=== PATIENT | male | born 1965 | race African-American/Black ===

== ENCOUNTER 2016-11-20 14:14 | Inpatient (IN) | payer MEDICAID ==
[~2016-11-20] VITALS: Ht 182.9 cm; Wt 88.0 kg
[2016-11-20] MEDS ORDERED: KETOROLAC 30MG/ML VIAL IV ONE (14:45)
[2016-11-20] MEDS ORDERED: SODIUM CHLORIDE 0.9% 1,000 ML IV ONE (14:45)
[2016-11-20] MEDS ORDERED: CLONIDINE 0.2MG TABLET PO ONE (14:45)
[2016-11-20] MEDS ORDERED: METHOCARBAMOL 500MG TABLET PO ONE (14:45)
[2016-11-20] MEDS ORDERED: LORAZEPAM 2MG/ML CPJ IV ONE (14:45)
[2016-11-20 15:34] LABS: BASOPHILS % 0.9 % (0.0-2.0); EOSINOPHILS % 0.2 % (0.0-5.0); HEMATOCRIT. 45.4 % (42.0-52.0); HEMOGLOBIN. 15.4 g/dL (14.0-18.0); LYMPHOCYTES % 31.2 % (20.0-50.0); MEAN CORPUSCULAR HEMOGLOBIN 30.4 pg (28.0-32.0); MEAN CORPUSCULAR HGB CONC 33.9 g/dL (31.0-37.0); MEAN CORPUSCULAR VOLUME 89.7 fL (80.0-94.0); MONOCYTES % 8.1 % (2.0-8.0); NEUTROPHILS % 59.6 % (40.0-76.0); PLATELET 359 x1000/uL (130-400); RED BLOOD CELL COUNT 5.07 mill/uL (4.7-6.1); RED CELL DISTRIBUTION WIDTH 14.1 % (11.6-14.6); WHITE BLOOD COUNT 9.6 x1000/uL (4.5-11.0)
[2016-11-20 15:42] LABS: ALBUMIN 3.6 g/dL (3.4-5.0); ANION GAP 13; CALCIUM 8.9 mg/dL (8.5-10.1); CARBON DIOXIDE 27 mEq/L (21-32); CHLORIDE 100 mEq/L (98-107); INDEX HEMOLYSI 1 (1-3); INDEX ICTERIC 1 (1-4); INDEX LIPEMIC 1 (1-3); UREA NITROGEN BLOOD 14 mg/dL (7-21)
[2016-11-20 15:47] LABS: ALANINE AMINOTRANSFERASE 55 IU/L (13-61); eGFR > 60 mL/min (>60)
[2016-11-20 15:49] LABS: TROPONIN I < 0.02 ng/mL (0.00-0.04)
[2016-11-20 16:25] LABS: CLARITY URINE CLEAR (CLEAR); COLOR URINE YELLOW (YELLOW); GLUCOSE URINE NEGATIVE (NEGATIVE); KETONES URINE NEGATIVE (NEGATIVE); LEUKOCYTE ESTERASE URINE NEGATIVE (NEGATIVE); NITRITE URINE NEGATIVE (NEGATIVE); OCCULT BLOOD URINE NEGATIVE (NEGATIVE); PH URINE 7.5 (4.5-8.0); PROTEIN URINE NEGATIVE (NEGATIVE); SPECIFIC GRAVITY URINE 1.009 (1.005-1.030)
[2016-11-20 16:36] LABS: *AMPHETAMINES SCREEN URINE PRESUMTIVE POSITIVE (NEGATIVE); *BARBITURATES SCREEN URINE NEGATIVE (NEGATIVE); *BENZODIAZEPINES SCREEN URINE NEGATIVE (NEGATIVE); *COCAINE SCREEN URINE NEGATIVE (NEGATIVE); CANNABINOID URINE SCREEN NEGATIVE (NEGATIVE); ECSTASY MDMA SCREEN URINE NEGATIVE (NEGATIVE); METHADONE URINE SCREEN NEGATIVE (NEGATIVE); OPIATES URINE SCREEN PRESUMTIVE POSITIVE (NEGATIVE); PHENCYCLIDINE URINE SCREEN NEGATIVE (NEGATIVE)
[2016-11-20 22:03] VITALS: BP 176/125
[2016-11-20 22:30] VITALS: BP 176/125
[2016-11-20] MEDS ORDERED: LORAZEPAM 2MG/ML CPJ IV PRN (23:18)
[2016-11-20] MEDS ORDERED: SODIUM CHLORIDE 0.9% 1,000 ML IV SCH (23:36)
[2016-11-20] MEDS ORDERED: ONDANSETRON HCL 4MG/2ML VIAL IV PRN (23:45)
[2016-11-20] MEDS ORDERED: ACETAMINOPHEN 325MG TABLET PO PRN (23:45)
[2016-11-20] MEDS ORDERED: DIPHENHYDRAMINE 50MG/ML VIAL IV PRN (23:45)
[2016-11-20] MEDS ORDERED: IPRATROPIUM/ALBUTEROL 0.5-3(2.5)MG/3ML NEB INH PRN (23:45)
[2016-11-20] MEDS ORDERED: ACETAMINOPHEN 650MG SUPP PR PRN (23:45)
[2016-11-20] MEDS ORDERED: DOCUSATE SODIUM 100MG CAPSULE PO PRN (23:45)
[2016-11-20] MEDS ORDERED: MORPHINE SULFATE 2 MG/ML CPJ (NOT FOR IM USE) IV PRN (23:45)
[2016-11-20] MEDS ORDERED: NA PHOS,M-B/NA PHOS,DI-BA ENEMA 118ML PR PRN (23:45)
[2016-11-20] MEDS ORDERED: ACETAMINOPHEN 650MG/20.3ML UDC GT PRN (23:45)
[2016-11-20] MEDS ORDERED: GUAIFENESIN 200MG/10ML SUGAR FREE UDC PO PRN (23:45)
[2016-11-20] MEDS ORDERED: CLONIDINE 0.1MG TABLET PO PRN ×2 (23:45)
[2016-11-20] MEDS ORDERED: MAGNESIUM/ALUMINUM HYDROXIDE/SIMETHICONE 30ML UDC PO PRN (23:45)
[2016-11-21] VITALS: BP 163/98
[2016-11-21] MEDS ORDERED: LORAZEPAM 2MG/ML CPJ IV PRN (01:30)
[2016-11-21] MEDS: AMLODIPINE 10MG TABLET PO SCH ×3 (01:31→13:18)
[2016-11-21 04:00] VITALS: BP 147/104
[2016-11-21] MEDS ORDERED: VALPROIC ACID 250MG CAPSULE PO SCH (06:00)
[2016-11-21] MEDS ORDERED: SODIUM CHLORIDE 0.9% INJ 3ML FLUSH IVF SCH (06:00)
[2016-11-21 07:04] LABS: BASOPHILS % 0.5 % (0.0-2.0); HEMATOCRIT. 40.5 % (42.0-52.0); HEMOGLOBIN. 13.9 g/dL (14.0-18.0); MEAN CORPUSCULAR HEMOGLOBIN 30.3 pg (28.0-32.0); MEAN CORPUSCULAR HGB CONC 34.3 g/dL (31.0-37.0); MEAN CORPUSCULAR VOLUME 88.1 fL (80.0-94.0); MEAN PLATELET VOLUME 7.1 fl (7.4-10.4); MONOCYTES % 6.9 % (2.0-8.0); NEUTROPHILS % 60.6 % (40.0-76.0); PLATELET 373 x1000/uL (130-400); RED BLOOD CELL COUNT 4.59 mill/uL (4.7-6.1); WHITE BLOOD COUNT 10.3 x1000/uL (4.5-11.0)
[2016-11-21 08:40] LABS: ALANINE AMINOTRANSFERASE 43 IU/L (13-61); ALBUMIN 3.1 g/dL (3.4-5.0); ANION GAP 16; CALCIUM 8.6 mg/dL (8.5-10.1); CARBON DIOXIDE 21 mEq/L (21-32); CHLORIDE 105 mEq/L (98-107); CREATINE KINASE 490 IU/L (39-308); HDL CHOLESTEROL 52 mg/dL (40-59); INDEX HEMOLYSI 1 (1-3); INDEX ICTERIC 1 (1-4); INDEX LIPEMIC 1 (1-3); LDL CHOLESTEROL 92 mg/dL (5-100); TRIGLYCERIDE 62 mg/dL (0-150); UREA NITROGEN BLOOD 15 mg/dL (7-21); eGFR > 60 mL/min (>60)
[2016-11-21 08:43] LABS: TROPONIN I < 0.02 ng/mL (0.00-0.04)
[2016-11-21] MEDS ORDERED: VALP250C PO (14:40)
[2016-11-21] MEDS ORDERED: AMLO10TA80 PO (14:40)
[2016-11-21 15:15] VITALS: BP 140/88
== END 2016-11-21 15:40 | disposition home or self-care (01) | DRG 773 ==
LOC: ER 14:38 → 6WST 18:03
PROVIDERS: ADMIT Family Medicine; ATTEND Family Medicine
DX: F11.23 Opioid dependence with withdrawal (principal); E44.1 Mild protein-calorie malnutrition; D63.8 Anemia in other chronic diseases classified elsewhere; F41.9 Anxiety disorder, unspecified; R73.9 Hyperglycemia, unspecified; F15.90 Other stimulant use, unspecified, uncomplicated; Z68.26 Body mass index [BMI] 26.0-26.9, adult; Z79.899 Other long term (current) drug therapy
CPT/HCPCS: 36415; 80053; 80061; 80305; 81003; 82550; 84484; 85025; 93005; 96361; 96374; 96375; 99285; C1893; J1885; J2060; J2405; J7030

== ENCOUNTER 2018-07-04 16:00 | Emergency (ER) | payer MEDICAID ==
[~2018-07-04] VITALS: Ht 177.8 cm; Wt 84.0 kg
[~2018-07-04 16:00] MED LIST: AMLO10TA80 PO; AMLO5TAB4 MT; VALP250C PO
[2018-07-04] MEDS ORDERED: HYDROCODONE/ACETAMINOPHEN 5/325MG TABLET PO ONE (20:15)
[2018-07-04] MEDS ORDERED: PIPERACILLIN/TAZ 3.375G PREMIX 50 ML IV NR (21:24)
[2018-07-04] MEDS ORDERED: PIPERACILLIN/TAZOBACTAM 3.375GM/50ML PREMIX IV ONE (21:30)
[2018-07-04] MEDS ORDERED: CEFAZOLIN 1000MG PREMIX 50 ML IV ONE (21:30)
[2018-07-04] MEDS ORDERED: VANCOMYCIN 1 G PREMIX 200 ML IV SCH (21:30)
[2018-07-04] MEDS ORDERED: MORPHINE SULFATE 4 MG/ML CPJ (NOT FOR IM USE) IV ONE (22:00)
[2018-07-05] MEDS ORDERED: MORPHINE SULFATE 2 MG/ML CPJ (NOT FOR IM USE) IV ONE (00:45)
[2018-07-05 01:55] VITALS: BP 142/93
== END 2018-07-05 02:10 | disposition short-term general hospital (02) ==
LOC: ER 16:00
DX: S51.851A Open bite of right forearm, initial encounter (principal); F17.200 Nicotine dependence, unspecified, uncomplicated; W54.0XXA Bitten by dog, initial encounter; Y93.89 Activity, other specified; Y92.89 Other specified places as the place of occurrence of the external cause
CPT/HCPCS: 73090; 73110; 73130; 96365; 96367; 96375; 96376; 99284; J2270; J2543; J3370

== ENCOUNTER 2021-12-14 19:32 | Emergency (ER) | payer MEDICAID ==
[~2021-12-14] VITALS: Ht 162.6 cm; Wt 94.5 kg
[2021-12-14 23:27] LABS: BASOPHILS % 0.3 % (0.0-2.0); EOSINOPHILS % 2.3 % (0.0-5.0); HEMATOCRIT. 47.2 % (42.0-52.0); LYMPHOCYTES % 51.8 % (20.0-50.0); MEAN CORPUSCULAR HEMOGLOBIN 29.8 pg (28.0-32.0); MEAN CORPUSCULAR VOLUME 87.8 fL (80.0-94.0); MEAN PLATELET VOLUME 7.2 fl (7.4-10.4); MONOCYTES % 5.3 % (2.0-8.0); NEUTROPHILS % 40.3 % (40.0-76.0); PLATELET 338 x1000/uL (130-400); RED BLOOD CELL COUNT 5.37 mill/uL (4.7-6.1); RED CELL DISTRIBUTION WIDTH 14.3 % (11.6-14.6)
[2021-12-14 23:43] LABS: CHLORIDE 101 mEq/L (98-107)
[2021-12-15 00:28] LABS: *AMPHETAMINES SCREEN URINE PRESUMTIVE POSITIVE (NEGATIVE); *BARBITURATES SCREEN URINE NEGATIVE (NEGATIVE); *BENZODIAZEPINES SCREEN URINE NEGATIVE (NEGATIVE); *COCAINE SCREEN URINE NEGATIVE (NEGATIVE)
[2021-12-15 00:29] LABS: CANNABINOID URINE SCREEN NEGATIVE (NEGATIVE); METHADONE URINE SCREEN NEGATIVE (NEGATIVE); OPIATES URINE SCREEN PRESUMTIVE POSITIVE (NEGATIVE); PHENCYCLIDINE URINE SCREEN NEGATIVE (NEGATIVE)
[2021-12-15] MEDS ORDERED: NALO4SPR BOTHNSTRLS (02:17)
[2021-12-15 02:24] VITALS: BP 169/82
== END 2021-12-15 02:28 | disposition home or self-care (01) ==
LOC: ER 19:32
DX: R07.89 Other chest pain (principal); F15.10 Other stimulant abuse, uncomplicated; F11.10 Opioid abuse, uncomplicated
CPT/HCPCS: 36415; 71045; 80053; 80305; 80320; 83880; 84484; 85025; 93005; 99285; G0480

== ENCOUNTER 2022-08-07 12:45 | Emergency (ER) | payer MEDICAID ==
[~2022-08-07] VITALS: Ht 167.6 cm; Wt 91.0 kg
[~2022-08-07 12:45] MED LIST changes: +NALO4SPR BOTHNSTRLS
[2022-08-07 12:56] VITALS: BP 162/113
== END 2022-08-07 17:44 | disposition left against medical advice (07) ==
LOC: ER 12:45
DX: Z53.21 Procedure and treatment not carried out due to patient leaving prior to being seen by health care provider (principal); M19.90 Unspecified osteoarthritis, unspecified site

== ENCOUNTER 2022-08-07 21:00 | Inpatient (IN) | payer MEDICAID ==
[~2022-08-07] VITALS: Ht 175.3 cm; Wt 92.5 kg
[2022-08-08 01:15] LABS: BASOPHILS % 0.7 % (0.0-2.0); EOSINOPHILS % 0.9 % (0.0-5.0); HEMATOCRIT. 49.9 % (42.0-52.0); HEMOGLOBIN. 16.7 g/dL (14.0-18.0); LYMPHOCYTES % 38.3 % (20.0-50.0); MEAN CORPUSCULAR HEMOGLOBIN 29.8 pg (28.0-32.0); MEAN CORPUSCULAR VOLUME 89.4 fL (80.0-94.0); MEAN PLATELET VOLUME 7.2 fl (7.4-10.4); MONOCYTES % 9.8 % (2.0-8.0); NEUTROPHILS % 50.3 % (40.0-76.0); PLATELET 310 x1000/uL (130-400); RED BLOOD CELL COUNT 5.59 mill/uL (4.7-6.1); RED CELL DISTRIBUTION WIDTH 14.2 % (11.6-14.6)
[2022-08-08] MEDS ORDERED: ASPIRIN 325MG EC TABLET PO ONE (01:15)
[2022-08-08 01:21] LABS: CHLORIDE 93 mEq/L (98-107)
[2022-08-08] MEDS ORDERED: INSULIN REGULAR (HUMULIN R) 300UNITS/3ML VIAL SUBCUT NR (02:30)
[2022-08-08] MEDS ORDERED: ONDANSETRON HCL 4MG/2ML INJ IV PRN (09:30)
[2022-08-08] MEDS ORDERED: DIPHENHYDRAMINE 50MG/ML VIAL IV PRN (09:30)
[2022-08-08] MEDS ORDERED: CLONIDINE 0.1MG TABLET PO PRN (09:30)
[2022-08-08] MEDS ORDERED: ACETAMINOPHEN 325MG TABLET PO PRN (09:30)
[2022-08-08] MEDS ORDERED: IPRATROPIUM/ALBUTEROL 0.5-3(2.5)MG/3ML NEB HHN PRN (09:30)
[2022-08-08 11:00] VITALS: BP 142/91
[2022-08-08 20:00] VITALS: BP 113/72
[2022-08-08] MEDS ORDERED: DEXTROSE 50% WATER 50ML SYRINGE IV PRN (22:00)
[2022-08-09] VITALS: BP 132/88
[2022-08-09 04:00] VITALS: BP 158/80
[2022-08-09 05:41] LABS: BASOPHILS % 0.3 % (0.0-2.0); EOSINOPHILS % 2.3 % (0.0-5.0); HEMATOCRIT. 43.3 % (42.0-52.0); HEMOGLOBIN. 14.8 g/dL (14.0-18.0); LYMPHOCYTES % 45.7 % (20.0-50.0); MEAN CORPUSCULAR HEMOGLOBIN 30.1 pg (28.0-32.0); MEAN CORPUSCULAR VOLUME 87.8 fL (80.0-94.0); MEAN PLATELET VOLUME 7.5 fl (7.4-10.4); MONOCYTES % 9.6 % (2.0-8.0); NEUTROPHILS % 42.1 % (40.0-76.0); PLATELET 325 x1000/uL (130-400); RED BLOOD CELL COUNT 4.93 mill/uL (4.7-6.1); RED CELL DISTRIBUTION WIDTH 14.1 % (11.6-14.6)
[2022-08-09] MEDS: BLOOD SUGAR DIAGNOSTIC STRIP TEST SCH ×4 (07:15→22:12)
[2022-08-09] MEDS: INSULIN LISPRO 100 UNITS/ML SUBCUT SCH ×4 (07:59→22:11)
[2022-08-09 08:00] VITALS: BP 130/82
[2022-08-09 09:12] LABS: CHLORIDE 94 mEq/L (98-107)
[2022-08-09 10:31] LABS: *AMPHETAMINES SCREEN URINE PRESUMTIVE POSITIVE (NEGATIVE); *BARBITURATES SCREEN URINE NEGATIVE (NEGATIVE); *BENZODIAZEPINES SCREEN URINE NEGATIVE (NEGATIVE); *COCAINE SCREEN URINE NEGATIVE (NEGATIVE); CANNABINOID URINE SCREEN NEGATIVE (NEGATIVE); METHADONE URINE SCREEN NEGATIVE (NEGATIVE); OPIATES URINE SCREEN PRESUMTIVE POSITIVE (NEGATIVE); PHENCYCLIDINE URINE SCREEN NEGATIVE (NEGATIVE)
[2022-08-09 12:00] VITALS: BP 137/72
[2022-08-09 16:00] VITALS: BP 127/88
[2022-08-09 20:00] VITALS: BP 128/98
[2022-08-10] VITALS: BP 150/84
[2022-08-10 04:00] VITALS: BP 179/68
[2022-08-10 07:10] LABS: BASOPHILS % 0.3 % (0.0-2.0); EOSINOPHILS % 1.3 % (0.0-5.0); HEMATOCRIT. 41.9 % (42.0-52.0); HEMOGLOBIN. 14.6 g/dL (14.0-18.0); LYMPHOCYTES % 42.9 % (20.0-50.0); MEAN CORPUSCULAR HEMOGLOBIN 30.4 pg (28.0-32.0); MEAN CORPUSCULAR VOLUME 87.4 fL (80.0-94.0); MEAN PLATELET VOLUME 7.6 fl (7.4-10.4); MONOCYTES % 9.7 % (2.0-8.0); NEUTROPHILS % 45.8 % (40.0-76.0); PLATELET 321 x1000/uL (130-400); RED BLOOD CELL COUNT 4.79 mill/uL (4.7-6.1); RED CELL DISTRIBUTION WIDTH 13.8 % (11.6-14.6)
[2022-08-10] MEDS: BLOOD SUGAR DIAGNOSTIC STRIP TEST SCH ×4 (07:30→20:31)
[2022-08-10 07:34] LABS: CHLORIDE 91 mEq/L (98-107)
[2022-08-10] MEDS: INSULIN LISPRO 100 UNITS/ML SUBCUT SCH ×4 (07:38→20:49)
[2022-08-10 08:00] VITALS: BP 132/76
[2022-08-10] MEDS ORDERED: OXYCODONE HCL 5MG TABLET PO SCH (10:00)
[2022-08-10 11:53] VITALS: BP 146/77
[2022-08-10 16:00] VITALS: BP 134/97
[2022-08-10] MEDS: METHADONE HCL 10MG TABLET PO SCH (17:56)
[2022-08-10] MEDS: INSULIN GLARGINE 100 UNITS/ML SUBCUT SCH ×2 (17:58→20:49)
[2022-08-10] MEDS ORDERED: NALOXONE HCL 0.4MG/ML VIAL IV PRN (19:30)
[2022-08-10 20:00] VITALS: BP 116/81
[2022-08-11] VITALS (7 sets, daily range): BP systolic 109–160; BP diastolic 70–95
[2022-08-11] MEDS: BLOOD SUGAR DIAGNOSTIC STRIP TEST SCH ×4 (05:42→21:53)
[2022-08-11] MEDS: INSULIN LISPRO 100 UNITS/ML SUBCUT SCH ×4 (05:43→21:53)
[2022-08-11] MEDS: METHADONE HCL 10MG TABLET PO SCH ×2 (08:51→16:34)
[2022-08-11] MEDS: INSULIN GLARGINE 100 UNITS/ML SUBCUT SCH ×2 (09:37→21:53)
[2022-08-11] MEDS ORDERED: LANTUSUD SUBCUT (15:38)
== END 2022-08-11 22:06 | disposition home or self-care (01) | DRG 420 ==
LOC: ER 21:24 → ENRESERV 08-08 08:46 → 7WST 08-08 09:27
PROVIDERS: ADMIT Internal Medicine; ATTEND Internal Medicine
DX: E11.65 Type 2 diabetes mellitus with hyperglycemia (principal); F11.23 Opioid dependence with withdrawal; F15.10 Other stimulant abuse, uncomplicated; F17.210 Nicotine dependence, cigarettes, uncomplicated; I10 Essential (primary) hypertension; R74.01 Elevation of levels of liver transaminase levels; Z79.899 Other long term (current) drug therapy
CPT/HCPCS: 36415; 71045; 80048; 80053; 80305; 82962; 83036; 83880; 84484; 85025; 93005; 93306; 93970; 99285; J1815